=== PATIENT | female | born 1970 | race Two or more races ===

== ENCOUNTER 2022-12-31 20:48 | Emergency (ER) | payer OTHER ==
[~2022-12-31] VITALS: Ht 152.4 cm; Wt 46.7 kg
[2022-12-31 21:44] VITALS: BP 163/103
--- NOTE | 2022-12-31 21:44 | NUR ---
[id number] FROM [facility] STAT LAYING ON FLOOR. NO MEDICAL COMPLAINTS. -SI. DENIES DRUG / ALCOHOL USE. TOLERATING R/A WELL WITH NO RESP DISTRESS.
--- NOTE | 2022-12-31 21:49 | NUR ---
Patient discharged to home in stable condition. Written and verbal after care instructions given. Patient verbalizes understanding of instruction.
== END 2022-12-31 22:00 | disposition home or self-care (01) ==
LOC: ER 21:02
DX: Z76.5 Malingerer [conscious simulation] (principal); I10 Essential (primary) hypertension; Z59.00 Homelessness unspecified